=== PATIENT | male | born 1970 | race Two or more races ===

== ENCOUNTER 2024-06-27 13:24 | Emergency (ER) | payer BC ==
[~2024-06-27] VITALS: Ht 177.8 cm; Wt 99.8 kg
[2024-06-27 13:34] VITALS: TEMP 98.5
[2024-06-27] MEDS ORDERED: ACETAMINOPHEN ES 500 MG TABLET ONE (13:46)
[2024-06-27] MEDS: ACETAMINOPHEN ES 500 MG TABLET PO ONE (13:57)
[2024-06-27 15:04] VITALS: BP 121/70; O2SAT 97
== END 2024-06-27 15:04 | disposition home or self-care (01) ==
LOC: ER 13:30
DX: S00.81XA Abrasion of other part of head, initial encounter (principal); F10.10 Alcohol abuse, uncomplicated; R51.9 Headache, unspecified; Y90.9 Presence of alcohol in blood, level not specified; X58.XXXA Exposure to other specified factors, initial encounter; Y93.89 Activity, other specified; Y92.89 Other specified places as the place of occurrence of the external cause; Y99.8 Other external cause status
CPT/HCPCS: 70450-TC; 73030-TC

== ENCOUNTER 2025-05-15 18:36 | Emergency (ER) | payer BC ==
[~2025-05-15] VITALS: Ht 185.4 cm; Wt 113.4 kg
[2025-05-15 18:39] VITALS: TEMP 98.5
[2025-05-15 20:30] LABS: RED BLOOD CELL COUNT(AUTO) 3.20 MIL/uL (4.5-6.0); RED CELL DISTRIBUTION WIDTH 24.0 % (11.5-15.0); WHITE BLOOD COUNT (AUTO) 2.9 K/uL (4.3-11.0)
[2025-05-15 20:42] LABS: CALCIUM, SERUM 7.5 mg/dL (8.5-10.1); CREATININE 0.6 mg/dL (0.6-1.3); SODIUM SERUM 145.0 mmol/L (136-145); UREA NITROGEN, BLOOD 10.0 mg/dL (7-18)
[2025-05-15 20:46] LABS: PLATELET COUNT (AUTO) 42 K/uL (150-450)
[2025-05-15 20:55] LABS: ASPARTATE AMINOTRANSFERASE 64.0 U/L (15-37); TOTAL PROTEIN, SERUM 5.7 g/dL (6.4-8.2)
[2025-05-15 21:04] LABS: NT-PRO BNP 15 pg/mL (0-125)
[2025-05-15 21:06] LABS: EOSINOPHILS % (MANUAL) 4 % (0-4); LYMPHOCYTES % (MANUAL) 28 % (16-48); MONOCYTES % (MANUAL) 4 % (0-11.0); NEUTROPHILS % (MANUAL) 64 (42-76); PLATELET ESTIMATE DECREASED
[2025-05-15 21:08] LABS: ALCOHOL, BLOOD 306.0 mg/dL (0-10)
[2025-05-15 23:00] VITALS: BP 144/85; O2SAT 99
[2025-05-16] MEDS ORDERED: ONDANSETRON HCL/PF 4 MG/2 ML VIAL IVP PRN
[2025-05-16] MEDS ORDERED: Z GUARD REMEDY 4 OZ OINT TP PRN
[2025-05-16] MEDS ORDERED: IV NS 0.9% 1,000 ML IV PRN
[2025-05-16 00:44] LABS: AMPHETAMINE, URINE NEGATIVE (NEGATIVE); BARBITURATE, URINE NEGATIVE (NEGATIVE); BENZODIAZEPINE, URINE NEGATIVE (NEGATIVE); CANNABINOID, URINE NEGATIVE (NEGATIVE); COCCAINE, URINE NEGATIVE (NEGATIVE); OPIATE, URINE NEGATIVE (NEGATIVE)
[2025-05-16] MEDS ORDERED: PANTOPRAZOLE 40 MG TABLET.DR PO SCH (07:30)
[2025-05-16] MEDS ORDERED: THIAMINE HCL 100 MG TABLET PO SCH (09:00)
== END 2025-05-16 00:49 | disposition left against medical advice (07) ==
LOC: ER 18:39
DX: F10.20 Alcohol dependence, uncomplicated (principal); M54.2 Cervicalgia; R51.9 Headache, unspecified; I50.9 Heart failure, unspecified; Z59.00 Homelessness unspecified; Z79.899 Other long term (current) drug therapy
CPT/HCPCS: 99285; 93005; 71045; 73610 ×2; 72125; 70450; 85027; 80048; 83690; 80076; 85378; 85007; 36415; 84484 ×2; 83880; 93970; 80320; 80307; L0172; G0480

== ENCOUNTER 2025-07-02 15:35 | Inpatient (IN) | payer BC ==
[~2025-07-02] VITALS: Ht 175.3 cm; Wt 118.1 kg
[2025-07-02] MEDS: IV NS 0.9% 1,000 ML BAG IV ONE (16:10)
[2025-07-02 16:26] LABS: RED BLOOD CELL COUNT(AUTO) 2.70 MIL/uL (4.5-6.0); RED CELL DISTRIBUTION WIDTH 22.8 % (11.5-15.0); WHITE BLOOD COUNT (AUTO) 3.9 K/uL (4.3-11.0)
[2025-07-02 16:28] LABS: CALCIUM, SERUM 7.3 mg/dL (8.5-10.1); CREATININE 0.7 mg/dL (0.6-1.3); SODIUM SERUM 147 mmol/L (136-145); UREA NITROGEN, BLOOD 12 mg/dL (7-18)
[2025-07-02 16:29] LABS: PLATELET COUNT (AUTO) 44 K/uL (150-450)
[2025-07-02 16:38] LABS: BAND % (MANUAL) 1 % (0.0-5.0); BASOPHILS % (MANUAL) 0 % (0.0-2.0); EOSINOPHILS % (MANUAL) 1 % (0-4); LYMPHOCYTES % (MANUAL) 42 % (16-48); METAMYELOCYTES % 1 % (0-0); MONOCYTES % (MANUAL) 5 % (0-11.0); NEUTROPHILS % (MANUAL) 50 (42-76); PLATELET ESTIMATE DECREASED
[2025-07-02 16:41] LABS: NT-PRO BNP 74.0 pg/mL (0-125)
[2025-07-02 16:49] LABS: ASPARTATE AMINOTRANSFERASE 73 U/L (15-37)
[2025-07-02 16:50] LABS: CREATINE KINASE, TOTAL 380.0 U/L (39-308); TOTAL PROTEIN, SERUM 6.0 g/dL (6.4-8.2)
[2025-07-02 16:51] LABS: ALCOHOL, BLOOD 396 mg/dL (0-10)
[2025-07-02 21:10] VITALS: BP 138/70; TEMP 97.9; O2SAT 96
[2025-07-02 21:30] VITALS: BP 138/70; TEMP 97.9; O2SAT 96
[2025-07-02] MEDS ORDERED: ONDANSETRON HCL/PF 4 MG/2 ML VIAL IVP PRN (21:30)
[2025-07-02] MEDS ORDERED: MAGNESIUM HYDROXIDE 30 ML UDC PO PRN (21:30)
[2025-07-02] MEDS ORDERED: ZOLPIDEM TARTRATE 5 MG TABLET PO PRN (21:30)
[2025-07-02] MEDS ORDERED: Z GUARD REMEDY 4 OZ OINT TP PRN (21:30)
[2025-07-02] MEDS ORDERED: ACETAMINOPHEN 325 MG TABLET PO PRN (21:30)
[2025-07-02] MEDS ORDERED: HYDROCODONE/APAP 10/325MG TABLET PO PRN (21:30)
[2025-07-02] MEDS ORDERED: HYDROCODONE/APAP 5/325MG TABLET PO PRN (21:30)
[2025-07-02] MEDS ORDERED: LORAZEPAM 1 MG TABLET PO PRN ×2 (21:30)
[2025-07-02 22:15] VITALS: BP 129/73; TEMP 97.9; O2SAT 96
[2025-07-02] MEDS ORDERED: THIAMINE HCL 100 MG TABLET ONE (22:36)
[2025-07-02 23:15] VITALS: BP 143/75; TEMP 98; O2SAT 95
[2025-07-03] VITALS (8 sets, daily range): BP systolic 128–146; BP diastolic 74–90; TEMP 97.5–98.8; O2SAT 90–97
[2025-07-03] MEDS: Thiamine 100 MG in IV D5W 50 ML IV ONE (00:09)
[2025-07-03] MEDS: MAG HYDROX/AL HYDROX/SIMETH 30 ML UDC PO PRN (05:52)
[2025-07-03 06:32] LABS: RED BLOOD CELL COUNT(AUTO) 2.65 MIL/uL (4.5-6.0); RED CELL DISTRIBUTION WIDTH 22.7 % (11.5-15.0); WHITE BLOOD COUNT (AUTO) 3.1 K/uL (4.3-11.0)
[2025-07-03 06:51] LABS: PLATELET COUNT (AUTO) 33 K/uL (150-450)
[2025-07-03 06:56] LABS: CREATINE KINASE, TOTAL 303.0 U/L (39-308)
[2025-07-03 06:58] LABS: CALCIUM, SERUM 7.6 mg/dL (8.5-10.1); CREATININE 0.5 mg/dL (0.6-1.3); PHOSPHORUS 3.4 mg/dL (2.5-4.9); SODIUM SERUM 148.0 mmol/L (136-145); UREA NITROGEN, BLOOD 10.0 mg/dL (7-18)
[2025-07-03] MEDS: FOLIC ACID 1 MG TABLET PO SCH (08:10)
[2025-07-03] MEDS: AMOX/CLAVULANATE 875 MG TABLET PO SCH (08:10)
[2025-07-03] MEDS: PANTOPRAZOLE 40 MG TABLET.DR PO SCH (08:10)
[2025-07-03] MEDS: THIAMINE HCL 100 MG TABLET PO SCH (08:10)
[2025-07-03] MEDS: MULTIVIT W/MINERALS 1 TAB TABLET PO SCH (08:10)
[2025-07-03 11:43] LABS: EOSINOPHILS % (MANUAL) 2 % (0-4); LYMPHOCYTES % (MANUAL) 32 % (16-48); MONOCYTES % (MANUAL) 18 % (0-11.0); NEUTROPHILS % (MANUAL) 48 (42-76); PLATELET ESTIMATE DECREASED
[2025-07-03 16:22] LABS: AMPHETAMINE, URINE NEGATIVE (NEGATIVE); BARBITURATE, URINE NEGATIVE (NEGATIVE); BENZODIAZEPINE, URINE NEGATIVE (NEGATIVE); CANNABINOID, URINE NEGATIVE (NEGATIVE); COCCAINE, URINE NEGATIVE (NEGATIVE); OPIATE, URINE NEGATIVE (NEGATIVE)
[2025-07-03 16:23] LABS: APPEARANCE,URINE CLOUDY (CLEAR); BLOOD, URINE NEGATIVE Ery/uL (NEGATIVE); LEUKOCYTE ESTERASE ,URINE NEGATIVE (NEGATIVE); NITRITE, URINE POSITIVE (NEGATIVE); UGLUCOSE TRACE mg/dL (NEGATIVE)
[2025-07-03 17:11] LABS: SQUAMOUS EPITHELIAL CELL,UR Few /HPF (None Seen); URINE AMORPHOUS URATE Many /HPF (None Seen)
[2025-07-03 17:12] LABS: ADD URINE CULTURE YES
[2025-07-04] VITALS: BP 132/79; TEMP 99; O2SAT 97
[2025-07-04 04:00] VITALS: BP 148/80; TEMP 98.4; O2SAT 97
[2025-07-04 06:33] LABS: RED BLOOD CELL COUNT(AUTO) 3.17 MIL/uL (4.5-6.0); RED CELL DISTRIBUTION WIDTH 21.1 % (11.5-15.0); WHITE BLOOD COUNT (AUTO) 2.7 K/uL (4.3-11.0)
[2025-07-04 06:37] LABS: ASPARTATE AMINOTRANSFERASE 61.0 U/L (15-37); CALCIUM, SERUM 7.7 mg/dL (8.5-10.1); CREATININE 0.6 mg/dL (0.6-1.3); SODIUM SERUM 142.0 mmol/L (136-145); TOTAL PROTEIN, SERUM 6.1 g/dL (6.4-8.2); UREA NITROGEN, BLOOD 5.0 mg/dL (7-18)
[2025-07-04 06:40] LABS: IRON, SERUM 101.0 ug/dl (50-175)
[2025-07-04 07:16] LABS: PLATELET COUNT (AUTO) 26 K/uL (150-450)
[2025-07-04 08:00] VITALS: BP 140/84; TEMP 98.4; O2SAT 97
[2025-07-04] MEDS: POTASSIUM CHLORIDE 20 MEQ TAB.PRT.SR PO ONE (11:18)
[2025-07-04 11:40] LABS: EOSINOPHILS % (MANUAL) 3 % (0-4); LYMPHOCYTES % (MANUAL) 18 % (16-48); MONOCYTES % (MANUAL) 15 % (0-11.0); NEUTROPHILS % (MANUAL) 64 (42-76); PLATELET ESTIMATE DECREASED
[2025-07-04 13:25] LABS: RHEUMATOID FACTOR SCREEN NEGATIVE (NEGATIVE)
[2025-07-04 16:00] VITALS: BP 150/80; TEMP 97.7; O2SAT 97
[2025-07-04 20:00] VITALS: BP 125/68; TEMP 98.2; O2SAT 99
[2025-07-05 00:17] LABS: HIV-1/2 ANTIBODY NON REACTIVE (NONREACTIVE)
[2025-07-05 09:10] LABS: IMMUNOGLOBULIN A, SERUM 728 mg/dL (90-386); IMMUNOGLOBULIN M, SERUM 69 mg/dL (20-172)
[2025-07-05 10:12] LABS: *ANA ANTI-CENTROMERE B AB <0.2 AI (0.0-0.9); *ANA ANTI-DNA(DS) AB, QN <1 IU/mL (0-9); *ANA ANTI-JO-1 <0.2 AI (0.0-0.9); *ANA ANTICHROMATIN ANTIBODY <0.2 AI (0.0-0.9); *ANA RNP ANTIBODIES 6.4 AI (0.0-0.9); *ANA SJOGREN'S ANTI-SS-A <0.2 AI (0.0-0.9); *ANA SJOGREN'S ANTI-SS-B <0.2 AI (0.0-0.9); *ANAANTI-SCLERODERMA-70 AB <0.2 AI (0.0-0.9); *ANASMITH AB <0.2 AI (0.0-0.9)
[2025-07-05 11:07] LABS: HEPATITIS B CORE AB, TOTAL Negative (Negative)
[2025-07-05 12:10] LABS: CARBOHYDRATE AG 19-9 62 U/mL (0-35); CARCINOEMBRYONIC ANTIGEN (CEA) 6.5 ng/mL (0.0-4.7)
[2025-07-06 05:09] LABS: FOLIC ACID > 20.0 ng/mL (>3.0)
[2025-07-06 07:12] LABS: FREE KAPPA LT CHAINS SERUM 50.8 mg/L (3.3-19.4); FREE LAMBDA LT CHAIN SERUM 52.9 mg/L (5.7-26.3); KAPPA/LAMBDA RATIO SERUM 0.96 (0.26-1.65)
== END 2025-07-05 09:00 | disposition left against medical advice (07) | DRG 342 ==
LOC: ER 15:38 → MED 20:57 → TELE 21:40 → MED 07-04 11:09
PROVIDERS: ADMIT Registered Nurse Psychiatric/Mental Health; ATTEND Nurse Practitioner Family
PROC: 30233N1 Transfusion of Nonautologous Red Blood Cells into Peripheral Vein, Percutaneous Approach (ICD-10-PCS; principal; 2025-07-02)
DX: S82.301A Unspecified fracture of lower end of right tibia, initial encounter for closed fracture (principal); D61.818 Other pancytopenia; J81.1 Chronic pulmonary edema; E44.1 Mild protein-calorie malnutrition; K86.2 Cyst of pancreas; K74.60 Unspecified cirrhosis of liver; K76.6 Portal hypertension; E88.09 Other disorders of plasma-protein metabolism, not elsewhere classified; E83.51 Hypocalcemia; F10.129 Alcohol abuse with intoxication, unspecified; Y90.8 Blood alcohol level of 240 mg/100 ml or more; W18.30XA Fall on same level, unspecified, initial encounter; Y92.009 Unspecified place in unspecified non-institutional (private) residence as the place of occurrence of the external cause; I51.7 Cardiomegaly; J01.90 Acute sinusitis, unspecified; S82.831A Other fracture of upper and lower end of right fibula, initial encounter for closed fracture; E80.6 Other disorders of bilirubin metabolism; Z53.29 Procedure and treatment not carried out because of patient's decision for other reasons; K80.20 Calculus of gallbladder without cholecystitis without obstruction; K70.10 Alcoholic hepatitis without ascites; E66.9 Obesity, unspecified; Z68.38 Body mass index [BMI] 38.0-38.9, adult; D72.819 Decreased white blood cell count, unspecified
CPT/HCPCS: 36415; 70450-TC; 71045-TC; 73564-TC; 73590-TC; 73610-TC; 76700-TC; 78226; 80048-TC; 80076-TC; 81001; 82378; 82550-TC; 82553; 82607-TC; 82728-TC; 82784; 83540-TC; 83735-TC; 83880; 84100-TC; 84155; 84165; 84443-TC; 84484-TC; 85027-TC; 85045-TC; 86140-TC; 86225; 86235; 86301; 86334; 86431-TC; 86704; 86803; 86850-TC; 87040-TC; 87086-TC; 87340; 87806; 93970-TC; A4223; A9537; G0378; G0480; J3411; J7030; J7040; J7050; J7060; P9016